=== PATIENT | male | born 1980 | race Caucasian/White ===

== ENCOUNTER 2024-03-20 06:04 | Emergency (ER) | payer MEDICAID, SELFPAY ==
[2024-03-20] VITALS (19 sets, daily range): BP systolic 129–138; BP diastolic 82–101; PULSE 73–88; RESP 11–21; O2SAT 93–98
--- NOTE | 2024-03-20 06:00 | DI.RAD_ITS ---
Exam(s) XR CHEST 2V PA LATERAL EXAM: XR CHEST 2V PA LATERAL CLINICAL HISTORY: chest pain. TECHNIQUE: 2D digital imaging was performed. COMPARISON: No exams were available for comparison FINDINGS: 2 views: Heart size is normal. The mediastinum is not widened. Lungs are clear. No infiltrates nor pleural effusions. IMPRESSION: No acute pulmonary findings. DATA REPOSITORY: RADIATION DOSE DELIVERED:
[2024-03-20 06:29] LABS: Abs Immature Grans 0.02 10^3/uL (0.0-0.06); Absolute Basophil Count 0.05 10^3/uL (0.0-0.2); Absolute Eosinophil Count 0.46 10^3/uL (0.0-0.7); Absolute Lymphocyte Count 2.04 10^3/uL (1.2-3.4); Absolute Monocyte Count 0.53 10^3/uL (0.1-0.8); Absolute Neutrophil Count 2.96 10^3/uL (1.2-6.7); Basophils % 0.8 %; Eosinophils % 7.6 %; HCT 44.9 % (40.0-50.0); HGB 15.6 g/dL (13.5-17.5); Immature Grans % 0.3 %; Lymphocytes % 33.7 %; MCH 31.1 pg (27.0-33.0); MCHC 34.7 % (32.0-36.0); MCV 90 fL (80-95); Monocytes % 8.7 %; Neutrophils % 48.9 %; Platelet Count 198 10^3/uL (130-400); RBC 5.01 10^6/uL (4.36-5.78); RDW 12.4 % (11.8-14.1); RDW-SD 40.7 fL; WBC 6.06 10^3/uL (4.4-10.8)
[2024-03-20] MEDS: Acetaminophen 500 MG TAB 1000 MG PO (06:47)
--- NOTE | 2024-03-20 06:49 | ED.GENADUL_ITS ---
Discharge Plan Disposition Patient Disposition: Home Condition: Good Discharge Details Clinical Impression: Chest pain Primary Care Provider: Unknown,Unknown ED Provider: Odette Goldberg Home Meds and New Rx's Prescriptions: No Action No Known Home Meds Discharge Instructions Instructions: Chest Pain, Adult ED Additional Instructions: Tylenol and ibuprofen over the counter for pain; follow the instructions on the bottle. Try heat and gentle stretching. Call your primary care doctor today to schedule an appointment within one week to followup on your visit here. Return to the emergency department for new or worsening symptoms including new/different/worse chest pain, difficulty breathing, or if you have any other concerns. Stand Alone Forms: Work Release HPI General Mode of arrival: ambulatory . Date/Time Provider Initiated Documentation: 03/20/24 06:05 . Limitations to Documentation: no limitations . Information obtained by: patient and family . HPI Narrative: 43yo previously health male presenting with chest pain. Pain start around 0500 while having intercourse. Sharp/pinching, substernal and left sided, was severe at onset and is now mild. Radiates into left arm and bilateral scapula. Worse with movement. No lightheadedness or shortness of breath. No numbness or weakness in arms. Never experienced pain like this before. No prior cardiac history. No family history of early cardiac disease or sudden unexpected . Otherwise in his usual state of health with no fevers, chills, rash, nausea, vomiting, abdominal pain, or other concerns. Related Data Home Medications ?Medication ?Instructions ?Recorded ?Confirmed Unknown [No Known Home Meds] 03/20/24 03/20/24 Allergies Allergy/AdvReac Type Severity Reaction Status Date / Time No Known Allergies Allergy Unverified 03/20/24 06:13 General Stated Complaint: Chest Pain JOLIE: 3 Review of Systems Narrative: see HPI Exam Narrative Exam Narrative: General: Alert, well appearing, well nourished, in no acute distress. Head: Normocephalic, atraumatic Neck: Trachea midline, ?Neck supple. ENT: ?MMM.? No oropharygeal lesions or exudate. Cardiac: ?RRR, no murmurs appreciated. 2+ radial pulses symmetric bilaterally Chest: Left pectoralis TTP, more pronounced laterally. Resp: No respiratory distress. CTAB. Abd: ?Soft, non-distended, nontender : ?No suprapubic tenderness. Extremities: ?No deformities.? No peripheral edema. Neurologic: GCS 15. ? Moves all extremities freely against gravity Course Vital Signs Vital signs: Vital Signs Pulse Oximetry 97 03/20/24 06:09 Pulse 79 03/20/24 06:16 Pulse 83 03/20/24 06:16 Respiratory Rate 21 03/20/24 06:16 Respiratory Effort Normal, Non-Labored 03/20/24 06:15 Respiratory Depth Normal 03/20/24 06:15 Respiratory Pattern Normal 03/20/24 06:15 Blood Pressure 130/93 H 03/20/24 06:16 Blood Pressure Mean 105 03/20/24 06:16 Blood Pressure Position Sitting 03/20/24 06:10 Pulse Oximetry 94 03/20/24 06:16 Oxygen Delivery Method Room Air 03/20/24 06:10 Oxygen Flow Rate 0 03/20/24 06:10 Pain Level 6 03/20/24 06:15 Medical Decision Making 43yo previously healthy male presenting with chest pain, onset around 0500 while having intercourse. Vital signs reassuring on arrival. Well appearing on exam, no distress, lungs CTAB. Does have reproducible tenderness over pectoralis particularly laterally. EKG on arrival NSR, appropriate intervals, no ST segment or T wave abnormalities to suggest occlusive MT. No tachycardia or hypoxia to suggest pulmonary embolism, PERC negative; would not further pursue PE with dimer or CT imaging. Not suggestive of aortic dissection. Suspect most likely MSK strain; will give dose of tylenol here while awaiting results of workup. Labs reviewed as below; CBC reassuring with no leukocytosis or anemia, CMP with no actionable abnormalities, initial troponin negative. CXR independently reviewed; no focal pneumonia or pneumothorax on my view; radiology read below. Low-risk HEART score. Will send one hour delta troponin; if reassuring would give dose if toradol and discharge home to followup with PCP. Delta troponin negative. On reassessment reports pain is improved, remains well appearing wtih reassuring vital signs. Given 15mg IV toradol and discharged home. Discharge instructions and return precautions were reviewed with patient who verbalized understanding. All questions were answered and he is in full agreement with the plan. Imaging Data Radiologic Study: Imaging: X-Ray Radiologist's impression: IMPRESSION: No evidence for acute pulmonary disease Lab Data Lab results reviewed: Yes I reviewed the patient's lab results. Labs: Laboratory Tests Range/Units 03/20/24 06:21 WBC (4.4-10.8) 10^3/uL 6.06 RBC (4.36-5.78) 10^6/uL 5.01 Hgb (13.5-17.5) g/dL 15.6 Hct (40.0-50.0) % 44.9 MCV (80-95) fL 90 MCH (27.0-33.0) pg 31.1 MCHC (32.0-36.0) % 34.7 RDW (11.8-14.1) % 12.4 Plt Count (130-400) 10^3/uL 198 MPV (8.0-11.0) fL 8.0 Immature Gran % % 0.3 Neutrophils % % 48.9 Lymphocytes % % 33.7 Monocytes % % 8.7 Eosinophils % % 7.6 Basophils % % 0.8 Nucleated RBC % (0.0-0.3) % 0.0 Absolute Neutrophils (1.2-6.7) 10^3/uL 2.96 Absolute Lymphocytes (1.2-3.4) 10^3/uL 2.04 Absolute Monocytes (0.1-0.8) 10^3/uL 0.53 Absolute Eosinophils (0.0-0.7) 10^3/uL 0.46 Absolute Basophils (0.0-0.2) 10^3/uL 0.05 Sodium (136-145) mmol/L 142 Potassium (3.5-5.1) mmol/L 4.5 Chloride (98-107) mmol/L 107 Carbon Dioxide (21.0-32.0) mmol/L 27.4 Anion Gap (3-11) mmol/L 7.6 BUN (7-18) mg/dL 17 Creatinine (0.70-1.30) mg/dL 1.1 Est GFR (CKD-EPI 2020) (mL/min/1.73m2) 85.95 Glucose (74-106) mg/dL 101 Calcium (8.5-10.1) mg/dL 9.0 Total Bilirubin (0.2-1.0) mg/dL 0.48 AST (15-37) U/L 15 ALT (16-63) U/L 24 Alkaline Phosphatase (46-116) U/L 86 Troponin I (<or=76) ng/L 5 Total Protein (6.4-8.2) g/dL 7.1 Albumin (3.4-5.0) g/dL 3.8 Quality:SDOH Health Related Social Needs: No Data to Display PFSH All Active Problems (Updated 03/20/24 @ 07:12 by Odette Goldberg MD) Chest pain (Acute) Social History Smoking/Tobacco Use Status: Never Smoking risk assessment performed?: Yes Alcohol Intake: current Alcohol Intake frequency: 0-2 drinks per day Alcohol type: beer and hard liquor Drug use: Never Substance use type: does not use
[2024-03-20 06:54] LABS: ALT 24 U/L (16-63); AST 15 U/L (15-37); Albumin 3.8 g/dL (3.4-5.0); Alkaline Phosphatase 86 U/L (46-116); Anion Gap 7.6 mmol/L (3-11); BUN 17 mg/dL (7-18); Bilirubin, Total 0.48 mg/dL (0.2-1.0); CO2 27.4 mmol/L (21.0-32.0); CREATININE 1.1 mg/dL (0.70-1.30); Chloride 107 mmol/L (98-107); Estimated GFR 85.95 (mL/min/1.73m2); Glucose 101 mg/dL (74-106); Potassium 4.5 mmol/L (3.5-5.1); Sodium 142 mmol/L (136-145); Total Protein 7.1 g/dL (6.4-8.2); Troponin I 5 ng/L (<or=76)
--- NOTE | 2024-03-20 07:32 | DI.VRAD_ITS ---
PROCEDURE INFORMATION: Exam: XR Chest Exam date and time: 03/20/2024 6:40 AM Age: 43 years old Clinical indication: Pain; Chest pressure; Additional info: Chest pain TECHNIQUE: Imaging protocol: Radiologic exam of the chest. Views: 2 views. COMPARISON: No relevant prior studies available. FINDINGS: Lungs: Unremarkable. No consolidation. Pleural spaces: Unremarkable. No pleural effusion. No pneumothorax. Heart/Mediastinum: Unremarkable. No cardiomegaly. Bones/joints: Unremarkable. IMPRESSION: No evidence for acute pulmonary disease. Dictated and Authenticated by: Sergo Simons MD. Ordering:RONI Pino MD
[2024-03-20 07:34] LABS: Troponin I 4 ng/L (<or=76)
--- NOTE | 2024-03-24 12:47 | NUR.NOTE ---
Access chart to reconcile EKG orders with EKG's in [facility]. There is an order in ordered status. There is no EKG in [facility]. Nursing Note:
--- NOTE | 2024-03-31 08:25 | NUR.NOTE ---
In reconciling the EKG orders with EKG's in [facility]. I found that there is no EKG in [facility] or on either of the EKG units. Please refer to Dr. Goldberg's note regarding the reading of the EKG. She is aware of this occurance. Nursing Note:
== END 2024-03-20 07:50 | disposition home or self-care (01) ==
LOC: ER 07:58
PROVIDERS: Emergency Provider Student in an Organized Health Care Education/Training Program
DX: R07.9 Chest pain, unspecified (principal)
CPT/HCPCS: 36415; 80053; 99284; 71046; 84484; 85025; 99285

== ENCOUNTER 2024-05-28 10:01 | Outpatient (REF) | payer MEDICAID, SELFPAY ==
[2024-05-28 15:09] LABS: HCT 45.8 % (40.0-50.0); HGB 15.8 g/dL (13.5-17.5); MCHC 34.5 % (32.0-36.0); MCV 90 fL (80-95); MPV 8.6 fL (8.0-11.0); Platelet Count 232 10^3/uL (130-400); RBC 5.09 10^6/uL (4.36-5.78); RDW 12.5 % (11.8-14.1); RDW-SD 41.7 fL; WBC 5.84 10^3/uL (4.4-10.8)
[2024-05-28 15:58] LABS: ALT 30 U/L (16-63); AST 24 U/L (15-37); Albumin 4.1 g/dL (3.4-5.0); Alkaline Phosphatase 104 U/L (46-116); Anion Gap 9.9 mmol/L (3-11); BUN 12 mg/dL (7-18); Bilirubin, Total 0.56 mg/dL (0.2-1.0); CO2 27.1 mmol/L (21.0-32.0); CREATININE 1.1 mg/dL (0.70-1.30); Calcium 9.2 mg/dL (8.5-10.1); Calculated LDL 204 mg/dL (<100); Chloride 105 mmol/L (98-107); Cholesterol 293 mg/dL (<200); Estimated GFR 85.95 (mL/min/1.73m2); Glucose 103 mg/dL (74-106); HDL Cholesterol 49 mg/dL (40-60); Potassium 4.6 mmol/L (3.5-5.1); Sodium 142 mmol/L (136-145); Total Protein 7.3 g/dL (6.4-8.2); Triglyceride 201 mg/dL (<150); Vitamin D 25 Total 22.5 ng/mL (30-100)
== END 2024-05-28 10:02 | disposition home or self-care (01) ==
LOC: NCHCN 10:01
PROVIDERS: Visit Provider Nurse Practitioner Family
DX: E78.00 Pure hypercholesterolemia, unspecified (principal); K21.9 Gastro-esophageal reflux disease without esophagitis; E55.9 Vitamin D deficiency, unspecified
CPT/HCPCS: 80053; 80061; 82306; 85027

== ENCOUNTER 2024-07-04 10:50 | Day surgery (SDC) | payer MEDICAID, SELFPAY ==
--- NOTE | 2024-07-04 06:57 | W.ANESPRE ---
General Info Date of Service Date Performed: 07/04/24 Height: 5 ft 6 in Weight: 81.647 kg Body Mass Index (BMI): 29.0 Surgical Procedure: Operation Date: 07/04/24 12:05 Proposed Procedure Side Surgeon p Gastroscopy Lizzeth ARTEAGA MD Meds Allergies and Home Medications Allergies Allergy/AdvReac Type Severity Reaction Status Date / Time No Known Allergies Allergy Verified 07/04/24 11:32 Home Medication ?Medication ?Instructions ?Recorded clotrimazole-betamethasone 1 1 applic topical BID 05/30/24 %-0.05 % topical cream fluocinolone acetonide oil 0.01 % 5 drp otic (ear) DAILY 05/30/24 ear drops omeprazole 40 mg capsule,delayed 40 mg PO DAILY 05/30/24 release triamcinolone acetonide 0.025 % 1 applic topical BID 05/30/24 topical cream Current Visit Medications: Current Medications Generic Name Dose Route Start Last Admin Trade Name Freq PRN Reason Stop Dose Admin Ringer's Solution 1,000 mls @ 80 mls/hr 07/04/24 06:00 IV 07/04/24 23:59 INFUSION HAYES IV Miscellaneous Supplies 1 each 07/04/24 06:00 Iv Access IV 07/04/24 23:59 DIRECTED HAYES Sodium Chloride 0 ml 07/04/24 06:00 Normal Saline Flush 10 Ml Syr IV 07/04/24 23:59 PRN PRN Sodium Chloride 0 ml 07/04/24 06:00 Normal Saline 10 Ml Vial IJ 07/04/24 23:59 DIRECTED PRN Sterile Water 0 ml 07/04/24 06:00 Water,Injection,Sterile 10 Ml Vial IJ 07/04/24 23:59 DIRECTED PRN PFSH Active Problems Active Problems: Problem Status Onset Code Lesion of skin of face Acute L98.9 Medical History Medical History Difficulty swallowing Fatigue Pruritus ani GERD without esophagitis Allergic rhinitis Deviated nasal septum Sensorineural hearing loss Tinnitus Dermatitis of eyelid Hypercholesterolemia Vitamin D deficiency Surgical History Surgical History History of wisdom tooth extraction Tobacco Smoking/Tobacco Use Status: Never Alcohol Alcohol Intake: current Alcohol intake frequency: 0-2 drinks per day Alcohol type: beer and hard liquor Substance Use Substance use: Never Substance use type: does not use Vital Signs and Lab Results Vital Signs Most Recent Vital Signs in EMR: Temp Pulse Resp BP Pulse Ox 36.6 C 79 16 126/89 98 07/04/24 11:27 07/04/24 11:27 07/04/24 11:27 07/04/24 11:27 07/04/24 11:27 Lab Results Blood Type / Crossmatch: No Data to Display Complete Blood Count: No Data to Display Complete Metabolic Panel: No Data to Display Liver Function Panel: No Data to Display Coagulation Panel: No Data to Display Cardiac Panel: No Data to Display Arterial Blood Gas: No Data to Display Venous Blood Gas: No Data to Display Pancreas Panel: No Data to Display Thyroid Panel: No Data to Display Infectious Disease: No Data to Display Blood Cultures: No Data to Display Toxicology Panel: No Data to Display Anesthesia Assessment and Plan Anesthesia History Personal History: No History of Anesthesia Complications Family History: Family History Unknown Exercise Tolerance Exercise Tolerance: Metabolic Equivalents>4 Cardiac & Pulmonary Exam Cardiac Exam: Normal S1/S2 Heart Sounds Pulmonary Exam: Clear Bilateral Breath Sounds Implantable Cardiac Device Does patient have a Pacemaker or an ICD?: No Airway Exam Known Difficult Airway: No Mallampati Class: 4 Mouth Opening: Narrow (< 3cm) Thyromental Distance: Less than 3 cm Neck Range of Motion: Full ROM Neck Circumference: Normal Teeth Condition: Normal Dentition ASA Classification ASA Score: ASA 2 Emergency Case?: No NPO Status NPO Status: NPO Clears >2 hours, Solids >8 hours Anesthesia Plan Resuscitation Status: Full Code Anesthesia Technique: General Anesthesia Airway Planned: Natural Airway Monitors Used: Standard Monitors Preoperative Comments:: 43 yo male for EGD. Sig PMHx: GERD (omeprazole. sleeps with HOB flat), deviated septum. never smoker, occ EtOH.
[2024-07-04 11:27] VITALS: BP 126/89; PULSE 79; RESP 16; TEMP 36.6; O2SAT 98
[2024-07-04 11:56] VITALS: BMI 29.0
[2024-07-04] MEDS: Lactated Ringers 1,000 ML 80 ML IV (12:18)
--- NOTE | 2024-07-04 13:36 | W.PM.OP ---
Operative Note Operative Note PRE-OP DIAGNOSIS: Gastroesophageal reflux disease, dysphagia POST-OP DIAGNOSIS: same Small hiatal hernia, esophagitis PROCEDURE: EGD with biopsies SURGEON: Lizzeth RODRIGUEZ ANESTHESIA TYPE: MAC Refer to Anesthesia Record PATHOLOGY: other (Gastric antrum mucosal biopsies, GE junction mucosal biopsies, distal esophagus mucosal biopsies) COMPLICATIONS: None Patient was transported to: PACU Patient's condition: stable Findings: Small hiatal hernia, significant irritation in distal esophagus and GE junction Procedure Description: After obtaining informed consent, patient was brought back to the endoscopy suite. He was turned on his left side and connected to the monitors. Timeout was performed. Bite block was inserted. Propofol was administered by the nurse automotive shop foreman. I began by advancing the upper endoscope through the oropharynx and into the esophagus without difficulty. I advanced all way down to the second portion of the duodenum. The duodenum and duodenal bulb had a normal appearance. I withdrew into the stomach. The pylorus and the antrum had a normal appearance. I took gastric antrum mucosal biopsies. I evaluated the mucosa of the body of the stomach and the cardia. These were unremarkable. I did retroflex. Here I could appreciate a small hiatal hernia with about a 0.5 to 1 cm opening adjacent to the scope. I decompressed the stomach and withdrew into the esophagus. The gastric mucosa at the GE junction was quite beefy red and irregular. I took a number of GE junction mucosal biopsies. Z-line was at the level of the diaphragmatic hiatus. In the distal esophagus there was some reddened areas of the squamous mucosa and I took some distal esophageal mucosal biopsies here as well. I decompressed the stomach on last time and withdrew the scope entirely. Patient tolerated well. He went to recovery in stable condition. Disposition: Patient will be discharged home later today. I will see him back in the office in 2 to 4 weeks. I have increased his PPI dose to twice daily while awaiting pathology report. Date of Procedure: 07/04/24
[2024-07-04 13:37] VITALS: BP 108/71; PULSE 89; RESP 16; TEMP 36.1; O2SAT 97
--- NOTE | 2024-07-04 13:44 | W.ANESPOSTOP ---
Postoperative Evaluation Date, Time and Location Date Performed: 07/04/24 Time Performed: 13:44 Patient Location: Day Surgery Unit Vital Signs Most Recent Imported Vital Signs: Most Recent Vital Signs Temp Pulse Resp BP Pulse Ox 36.1 C L 89 16 108/71 97 07/04/24 13:37 07/04/24 13:37 07/04/24 13:37 07/04/24 13:37 07/04/24 13:37 Pain Score Most Recent Pain Score: Most Recent Pain Score Pain Level 0 07/04/24 13:37 Assessment Mental Status: Awake (Alert & Oriented to Patient Baseline) Airway and Respiratory Function: Patent airway with normal (patient baseline) respiratory exam Cardiovascular Function: Hemodynamically Stable Hydration Status: Adequately Hydrated Nausea & Vomiting: No Nausea or Vomiting Pain: Pt. Denies Any Pain Peripheral Nerve Block: Patient did not receive a nerve block
[2024-07-04 14:12] VITALS: BP 114/75; PULSE 68; RESP 16; TEMP 36.2; O2SAT 97
== END 2024-07-04 14:35 | disposition home or self-care (01) ==
LOC: SUR 10:50
PROVIDERS: PCP Nurse Practitioner Family; Visit Provider Surgery
PROC: 0DJ68ZZ Inspection of Stomach, Via Natural or Artificial Opening Endoscopic (ICD-10-PCS; CPT 43235; principal; 2024-07-04 12:00)
DX: K21.9 Gastro-esophageal reflux disease without esophagitis (principal); K20.90 Esophagitis, unspecified without bleeding; K44.9 Diaphragmatic hernia without obstruction or gangrene; R13.10 Dysphagia, unspecified; K31.9 Disease of stomach and duodenum, unspecified; K22.89 Other specified disease of esophagus
CPT/HCPCS: 43239; 88305; 88312; J2405; J2704

== ENCOUNTER 2024-11-12 19:46 | Outpatient (REF) | payer MEDICAID, SELFPAY ==
[2024-11-12 22:18] LABS: ESR 3 mm/hr (0-15)
[2024-11-12 23:19] LABS: C-Reactive Protein < 0.50 mg/dL (<or=0.5); TSH (W/Ref FT4) 1.22 uIU/mL (0.36-3.74)
== END 2024-11-12 19:47 | disposition home or self-care (01) ==
LOC: NCHCN 19:46
PROVIDERS: PCP Nurse Practitioner Family; Visit Provider Nurse Practitioner Family
DX: R53.82 Chronic fatigue, unspecified (principal)
CPT/HCPCS: 85652; 84443; 86038; 86140; 86431

== ENCOUNTER → 2025-03-12 02:30 | Outpatient (CLI) | payer MEDICAID, SELFPAY ==
--- NOTE | 2025-03-12 | DI.US_ITS ---
Exam(s) US THYROID EXAM: US THYROID CLINICAL HISTORY: SINGLE THYROID NODULE E04.1. TECHNIQUE: Ultrasound thyroid performed using standard protocol. COMPARISON: No exams were available for comparison FINDINGS: Both thyroid lobes exhibit normal size and echotexture, as is the isthmus. There are no thyroid nodules evident. No colloid cyst. No abnormal hyperemia. There is small benign-appearing lymph nodes in both sides the neck. There is no significant lymphadenopathy. IMPRESSION: 1. No significant findings on this ultrasound examination of the thyroid gland. DATA REPOSITORY:
== END ==
LOC: DI 02:31
PROVIDERS: PCP Nurse Practitioner Family; Visit Provider Nurse Practitioner Family
DX: E04.1 Nontoxic single thyroid nodule (principal)
CPT/HCPCS: 76536

== ENCOUNTER 2025-03-14 13:15 | Emergency (ER) | payer MEDICAID, SELFPAY ==
[2025-03-14 13:20] VITALS: BP 148/94; PULSE 83; RESP 18; TEMP 36.7; O2SAT 95
--- NOTE | 2025-03-14 13:30 | DI.RAD_ITS ---
Exam(s) XR HAND LT COMPLETE EXAM: XR HAND LT COMPLETE CLINICAL HISTORY: near amputation of 2nd digit. TECHNIQUE: 2D digital imaging was performed. COMPARISON: No exams were available for comparison FINDINGS: 3 views There is traumatic amputation of the 2nd-index finger with comminuted fracture lines through the proximal interphalangeal joint and displaced fragments of the proximal middle phalanx and distal proximal phalanx. The fracture line most proximal extent is in the mid aspect of the proximal phalanx. There is significant soft tissue laceration at the PIP joint level which reaches the articular level. No radiopaque foreign bodies. There is a calcification in the soft tissues on the lateral aspect of the neck of the proximal phalanx of the adjacent 3rd finger of questionable significance. IMPRESSION: Comminuted fracture/almost amputation as described above with epicenter at the level the PIP joint of the 2nd-index finger. No radiopaque foreign bodies. DATA REPOSITORY: RADIATION DOSE DELIVERED:
[2025-03-14] MEDS: MORPHine 10 MG/ML VIAL 4 MG IVP ×2 (14:01→16:45)
[2025-03-14] MEDS: ceFAZolin 2,000 MG in Normal Saline 100 ML 200 MG IVPB (14:09)
--- NOTE | 2025-03-14 14:51 | DI.VRAD_ITS ---
PROCEDURE INFORMATION: Exam: XR Left Hand Exam date and time: 03/14/2025 1:46 PM Age: 44 years old Clinical indication: Injury or trauma; Other: Saw; Amputation, traumatic; Left index finger; Additional info: Images completed with bandages - best images possible TECHNIQUE: Imaging protocol: Radiologic exam of the left hand. Views: 3 or more views. COMPARISON: No relevant prior studies available. FINDINGS: Bones/joints: Comminuted displaced fractures of the proximal phalanx and middle phalanx of the index finger. The PIP joint is severely disrupted. Soft tissues: Soft tissue swelling of the index finger IMPRESSION: Comminuted displaced fractures of the proximal phalanx and middle phalanx of the index finger. The PIP joint is severely disrupted. Dictated and Authenticated by: Ray Carrero MD. Orderin Diego Colorado MD
[2025-03-14 15:49] VITALS: BP 144/99; PULSE 72; RESP 16; O2SAT 97
--- NOTE | 2025-03-14 15:58 | ED.GENADUL_ITS ---
Discharge Plan Disposition Patient Disposition: Transfer-Acute Inpatient Care Discharge Details Clinical Impression: Traumatic amputation of left index finger Primary Care Provider: Katlin Wolf ED Provider: Miroslava Dickens Home Meds and New Rx's Prescriptions: No Action clotrimazole-betamethasone 1-0.05 % cream 1 applic topical BID fluocinolone acetonide oil 0.01 % drops 5 drp otic (ear) DAILY omeprazole 40 mg capsule,delayed release(DR/EC) 40 mg PO DAILY triamcinolone acetonide 0.025 % cream 1 applic topical BID Rx Instructions: x 1 week omeprazole 40 mg capsule,delayed release(DR/EC) 40 mg PO BID Qty: 60 1RF HPI General Date/Time Provider Initiated Documentation: 03/14/25 13:35 . HPI Narrative: Lalo is a 44-year-old male presents emergency department today for evaluation of left finger laceration. He reports that he was working on a mower when the blade clipped his finger, resulting in near amputation of the finger. He reports decreased sensation to the finger. No other injuries reported. Denies significant past medical history. Related Data Home Medications Medication Instructions Recorded Confirmed clotrimazole-betamethasone 1 1 applic topical BID 05/0207/04/24 %-0.05 % topical cream fluocinolone acetonide oil 0.01 % 5 drp otic (ear) CAROLIN LY 05/30/24 07/04/24 ear drops omeprazole 40 mg capsule,delayed 40 mg PO DAILY 07/04/24 release triamcinolone acetonide 0.025 % 1 applic topical BID 0 05/30/24 07/04/24 topical cream omeprazole 40 mg capsule,delayed 40 mg PO BID #60 caps 07/04/24 release Previous Rx's Medication Instructions Recorded omeprazole 40 mg capsule,delayed 40 mg PO BID #60 caps 07/04/24 release Allergies Allergy/AdvReac Type Severity Reaction Status Date / Time No Known Allergies Allergy Verified 07/04/24 11:32 General Stated Complaint: Laceration JOLIE: 2 Exam Const General: cooperative, healthy appearing, comfortable, no acute distress and well developed Nutritional Appearance: average body habitus Orientation: alert and oriented x3 Resp Effort & Inspection: normal respiratory effort and able to speak in complete sentences Neuro General: patient alert Sensory Exam: upper extremity (decreased sensation to distal L index finger) Extrem Right upper extremity: normal to inspection Left upper extremity: hand Details: abnormal to inspection (near amputation of L index finger between MCP and PIP joint. Scant bleeding) Other: Course Vital Signs Vital signs: Vital Signs Temperature 36.7 C 03/14/25 13:20 Pulse 83 03/14/25 13:20 Respiratory Rate 18 03/14/25 13:20 Blood Pressure 148/94 H 03/14/25 13:20 Pulse Oximetry 95 03/14/25 13:20 Temperature 36.7 C 03/14/25 13:20 Pulse 72 03/14/25 15:49 Respiratory Rate 16 03/14/25 15:49 Blood Pressure 144/99 H 03/14/25 15:49 Blood Pressure Mean 114 03/14/25 15:49 Pulse Oximetry 97 03/14/25 15:49 Oxygen Delivery Method Room Air 03/14/25 15:49 Oxygen Flow Rate 0 03/14/25 15:49 Pain Level 7 03/14/25 15:49 Medical Decision Making Lalo is a 44-year-old male presents the emergency department today for evaluation of left index finger laceration/near amputation. Bleeding well- controlled with gauze. Physical exam remarkable for amputation with mangled flesh to left index finger. Distal index finger is dusky with decreased sensation. I independently interpreted the following tests: Left hand x-ray notable for traumatic amputation left index finger. Radiologist interpreted this as traumatic amputation of the second/index finger with comminuted fracture line through the proximal interphalangeal joint and displaced fragments of the proximal middle phalanx and distal proximal phalanx. While in the emergency dept patient received morphine for pain control. History and presentation most consistent with traumatic near amputation. Cussed case with Dr. Cabrera at [facility], he recommended consulting with [facility] to see if finger might be salvageable, as patient is open to this option. I presented case, reviewing patient presentation, photos, and x-rays with Dr. Cortes. Based on location (zone 2) and mechanism of injury, this is not a candidate for reimplantation. I updated patient, he and his are agreeable with revision amputation at [facility]. ED- to- ED transfer arranged, Dr. Bermudez attending. Imaging Data Radiologic Study: Radiologist's impression: Exam(s) XR HAND LT COMPLETE EXAM: XR HAND LT COMPLETE CLINICAL HISTORY: near amputation of 2nd digit. TECHNIQUE: 2D digital imaging was performed. COMPARISON: No exams were available for comparison FINDINGS: 3 views There is traumatic amputation of the 2nd-index finger with comminuted fracture lines through the proximal interphalangeal joint and displaced fragments of the proximal middle phalanx and distal proximal phalanx. The fracture line most proximal extent is in the mid aspect of the proximal phalanx. There is significant soft tissue laceration at the PIP joint level which reaches the articular level. No radiopaque foreign bodies. There is a calcification in the soft tissues on the lateral aspect of the neck of the proximal phalanx of the adjacent 3rd finger of questionable significance. IMPRESSION: Comminuted fracture/almost amputation as described above with epicenter at the level the PIP joint of the 2nd-index finger. No radiopaque foreign bodies. PFSH All Active Problems (Updated 03/14/25 @ 16:10 by Miroslava Edmonds) Traumatic amputation of left index finger (Acute) Lesion of skin of face (Acute) Medical History (Updated 03/14/25 @ 16:10 by Miroslava Edmonds) Difficulty swallowing Fatigue Pruritus ani GERD without esophagitis Allergic rhinitis Deviated nasal septum Sensorineural hearing loss Tinnitus Dermatitis of eyelid Hypercholesterolemia Vitamin D deficiency Surgical History (Updated 07/14/24 @ 08:36 by Sona Hunter) History of esophagogastroduodenoscopy (~06/2024) History of wisdom tooth extraction Family History (Updated 05/30/24 @ 13:39 by Erin Sesay RN) Self Adopted 2 weeks old Social History Smoking/Tobacco Use Status: Never Smoking risk assessment performed?: Yes Alcohol Intake: current Alcohol Intake frequency: a few times a week Alcohol type: beer and hard liquor Drug use: Never Substance use type: does not use Housing: house Do you feel safe at home: Yes Do you feel safe in your relationship?: Yes
[2025-03-14 16:46] VITALS: BP 144/99; PULSE 72; RESP 16; O2SAT 97
== END 2025-03-14 16:48 | disposition short-term general hospital (02) ==
PROVIDERS: Emergency Provider Nurse Practitioner Family; PCP Nurse Practitioner Family
DX: S68.121A Partial traumatic metacarpophalangeal amputation of left index finger, initial encounter (principal); W31.89XA Contact with other specified machinery, initial encounter
CPT/HCPCS: 99285 ×2; 96375; 96365; 73130; J0690; J2270